=== PATIENT | male | born 1950 | race Caucasian/White ===

== ENCOUNTER 2017-07-20 06:24 | Day surgery (SDC) | payer MEDICARE ==
[~2017-07-20] VITALS: Ht 167.6 cm; Wt 72.3 kg
[~2017-07-20 06:24] MED LIST: ASPI81 PO; FISH1000 PO; LISI10TA PO; LORA-474 PO; LORT5TAB PO; SAWPOW; TAB-TAB PO
[2017-07-20] MEDS ORDERED: IOHEXOL 350 MG/ML 100 ML BTL (for Cath Lab) OTHER ONE (06:25)
[2017-07-20] MEDS ORDERED: SODIUM CHLOR 0.9% 1000 ML INJ 1,000 ML IV SCH ×2 (06:45→10:45)
[2017-07-20] MEDS ORDERED: SODIUM CHLORIDE 0.9% FLUSH 10 ML FLUSH IV FLUSH PRN (06:45)
[2017-07-20 07:11] VITALS: BP 148/79; PULSE 97; RESP 18; TEMP 97.6; O2SAT 95
[2017-07-20] MEDS ORDERED: VITACAP7 PO (07:23)
[2017-07-20] MEDS ORDERED: VITA250C3 CHEW (07:23)
[2017-07-20] MEDS ORDERED: UMEC1AER INH (07:23)
[2017-07-20] MEDS ORDERED: VENTAER INH (07:23)
[2017-07-20] MEDS ORDERED: LORA1TAB12 PO (07:23)
[2017-07-20] MEDS ORDERED: MIRA3350 PO (07:23)
[2017-07-20] MEDS ORDERED: PRAV10TA PO (07:23)
[2017-07-20] MEDS ORDERED: LISI20TA3 PO (07:23)
[2017-07-20] MEDS ORDERED: ASPI81CH7 CHEW (07:23)
[2017-07-20] MEDS ORDERED: BUSP10TA PO (07:23)
[2017-07-20] MEDS ORDERED: HEPARIN-NS/PF FLUSH BAG 1,000 ML IV FLUSH ONE (08:30)
[2017-07-20] MEDS ORDERED: HEPARIN SODIUM - IV 10,000 UNITS/10 ML VIAL ONE (08:33)
[2017-07-20] MEDS ORDERED: NITROGLYCERIN INJ 5 ML ONE (08:33)
[2017-07-20] MEDS ORDERED: MIDAZOLAM HCL 2 MG/2 ML VIAL ONE ×5 (08:33→09:59)
[2017-07-20] MEDS ORDERED: ADENOSINE IV SOLN 3 MG/ML 2 ML VIAL ONE (09:30)
[2017-07-20] MEDS ORDERED: CLOPIDOGREL 300 MG TAB ONE (10:40)
[2017-07-20] MEDS ORDERED: CLOPIDOGREL 300 MG TAB PO ONE (10:45)
[2017-07-20] MEDS ORDERED: LORazepam 2 MG/ML VIAL IV PUSH PRN (10:45)
[2017-07-20] MEDS ORDERED: LIDOCAINE HCL 1% 50 ML VIAL INFIL PRN (10:45)
[2017-07-20] MEDS ORDERED: MISC INFORMATION XX ONE (10:45)
[2017-07-20] MEDS ORDERED: BACITRACIN OINT 0.9 GM PKT TOP ONE (10:45)
--- NOTE | 2017-07-20 10:49 | CATHPROC ---
[facility] HIS Report Study Information Study Number Admission Scheduled Start Study Start [id number] Jul 20 2017 6:24AM 07/20/2017 Jul 20 2017 8:25AM [facility] Service Cardiac Catheterization Admit Source Facility Department Other [facility] Physician and Clinical Staff Initial Patrick Craig Cotton Baler Sandra Barbour,RN Recorder Henrique Mcgrath,RT(R) Scrub Caden Ledezma,RT(R) Procedures Performed Procedure Location (Site) Vessel Name Abdominal Angiogram Abd Aorta (A3) Aorta Angiogram (manual) Fem Art (right) Femoral Art Angiogram (manual) Popliteal R (R10) Popliteal Angiogram (manual) SFA (right) Femoral Art Angiogram (manual) Tib, Ant. (right) Popliteal Angiogram (manual) Tib, Post (right) Popliteal COMPUTER SUPPORT SPECIALIST INSTRUCTOR Fem Art (right) Femoral Art COMPUTER SUPPORT SPECIALIST INSTRUCTOR Tib, Ant. (right) Popliteal Wire insertion Fem Art (left) Femoral Art Wire insertion Fem Art (right) Femoral Art Equipment Time Fan Installer Description Size Mfg Part Number Used/Scraped DBP- CARDIOVASCULAR CATHETER, STEALTH SOLID 09:31 [id number] Used SYSTEMS INC. 1.5MM 30 GRIT *[id number] CARDIOVASCULAR LUBRICANT, VIPERSLIDE [id number] 09:31 Used SYSTEMS INC. ATHERCTOMY *[id number] CARDIOVASCULAR [id number] 09:18 WIRE, FIRM (VIPER) 335 Used SYSTEMS INC. *[id number] WIRE, GUIDE APPROACH HYDRO [id number] 09:12 COOK/KIM 300CM Used ST *[id number] 532-523 08:33 CORDIS/ KIM RIM SUPER TORQUE CATHETER FR 5 Used *[id number] WIRE, STORQ STANDARD MOD J [id number] 10:21 CORDIS/ KIM 300CM Used 300CM *[id number] *[id number] ENDOVASCULAR BALLOON, NANOCROSS 3.0 X 09:37 3 X 210 [id number] Used COMPANY 100MM 150CM ENDOVASCULAR CATHETER, FR4 TRAILBLAZER [id number]-[id number] 09:23 150CM Used COMPANY .014 *[id number] BALLOON, ADMIRAL IN.PACT 4 X [id number] 10:18 [employer] 130CM Used 150 130CM *[id number] BALLOON, ADMIRAL IN.PACT 7 X 10:28 [employer] 130CM [id number] Used 60 130CM BALLOON, PACIFIC PLUS 6 X 80 [id number] 10:09 [employer] 130CM Used 130CM *[id number] CATHETER, FR5 TRAILBLAZER SC-035-135 09:05 [employer] 135CM Used .035 *[id number] 08:33 MALLINCKRODT SYRINGE, ANGIOMAT 150ML 150ML [id number] Used [id number] 08:33 MEDLINE INDUSTRIES PACK, CCL CUSTOM * Used *[id number] [id number] 08:33 MEDLINE PACER PEN, SKIN DUAL W/ RULER * Used *6823379 [id number] 10:32 [employer] MEDICAL SHEATH, FR6.5 PRELUDE 11CM FR 6.5 038ACT Used *[id number] 08:33 [employer] MEDICAL WIRE, EXCHANGE 260CM 3MMJ 260CM Used *[id number] 08:33 NAMIC MANIFOLD, 4 PORT * Used *2122783 [id number] 08:33 NAMIC TUBING, HIGH PRESSURE 48" 48" Used *0676561 08:33 NYCOMED OMNIPAQUE, 300 MG, 150ML 150ML [id number] Used 10:38 NYCOMED OMNIPAQUE, 300 MG, 150ML 150ML [id number] Used [id number] 08:33 [employer]H MEDICAL BLANKET,WARM AIR CCL * Used *5405045 CVH260 08:33 TERUMO MEDICAL SHEATH, FR5 TERUMO (10CM) FR 5 Used *7372267 SHEATH, FR6 PINNACLE [id number] 09:02 TERUMO MEDICAL/KIM FR 6 Used DESTINATION 45CM *[id number] WIRE, ANGLE GLIDE STIFF .035 [id number] 08:33 TERUMO MEDICAL/KIM 260CM Used 260CM *[id number] Equipment Model, Serial, Lot Number and Expiration Data Description Model Number Serial Number Lot Number Expiration Date BALLOON, ADMIRAL IN.PACT 4 X [id number] 12-10-2019 150 130CM BALLOON, ADMIRAL IN.PACT 7 X [id number] 12-31-2019 60 130CM CATHETER, STEALTH SOLID 1.5MM [id number] 11-13-2018 30 GRIT WIRE, FIRM (VIPER) 335 [id number] 05-14-2019 WIRE, GUIDE APPROACH HYDRO [id number] 11-11-2019 ST History: Current Medications Medication Dosage/Unit Route Frequency Last Date/Time Taken Statins (any) Albuterol ASA LISINOPRIL History: Allergies Allergy Reaction hydrocodone RASH oxycodone acetaminophen escitalopram umeclidinium History: Risk Factors Family History of Hypertension Dyslipidemia Previous [place] Previous Heart Failure Premature CAD Yes Yes Yes No No Prior Valve Prior PCI Prior CABG Surgery No No No Cerebrovascular Peripheral Artery Chronic Lung On Dialysis Diabetes Disease Disease Disease No No Yes Yes No History: Stress Tests Stress or Imaging Studies Performed No History: Other Disease Selection Items COPD HTN History: Other Current Smoker Method Quit Packs a Day Years Used Pack Years No Cigarettes 15 Years Ago 2 30 60 Labs Hgb (g/dl) Hct (%) RBC (MIL/MM3) WBC (l/cumm) Platelets (thousands) 11.60-17.00 35.00-51.00 4.00-5.90 4.00-11.00 150.00-450.00 13.1 39.1 4.3 9.1 309 Glucose (mg/dl) BUN (mg/dl) Creatinine (mg/dl) BUN:Creatinine (1:x) 74.00-106.00 7.00-18.00 0.50-1.30 10.00-20.00 99 13 0.9 14.4 Na (meq/l) K (meq/l) Cl (meq/l) CO2 (mmol/L) Ca (mg/dl) 136.00-145.00 3.50-5.10 98.00-107.00 21.00-32.00 8.50-10.10 134 4.1 93 27 9.6 PT (sec) INR (PTT:PT) 9.80-11.60 0.90-1.10 9.8 0.9 CPK-MB (ng/ML) 0.50-3.60 Not Drawn Medication Medication Total Dose (Bolus/Oral) Medication Total Dosage/Unit 1% XYLOCAINE 20 mL ADENOSINE 1260 mcg FENTANYL 300 mcg HEPARIN 6000 units NTG (IC) 1000 mcg PLAVIX 600 mg VERSED 10 mg Medications (Bolus/Oral) Medication Time Given Dosage/Unit Administered By Reason VERSED 07/20/2017 8:52:40 AM 2 mg Sandra Barbour 2 mg VERSED given in lab by Sandra Barbour RN in Left Antecubital via Peripheral IV. Ordered by Patrick Guan. FENTANYL 07/20/2017 8:53:49 AM 50 mcg Adamy, Sandra 50 mcg FENTANYL given in lab by Sandra Barbour RN in Left Antecubital via Peripheral IV. Ordered by Patrick Monet. 1% XYLOCAINE 07/20/2017 8:55:23 AM 20 mL Patrick Monet 20 mL 1% XYLOCAINE given in lab by Patrick Monet in Left Groin via Subcutaneous. Ordered by Zechariah Monet. VERSED 07/20/2017 9:00:47 AM 1 mg Adamy, Sandra 1 mg VERSED given in lab by Sandra Barbour RN in Left Antecubital via Peripheral IV. Ordered by Patrick Guan. FENTANYL 07/20/2017 9:00:52 AM 25 mcg Adamy, Sandra 25 mcg FENTANYL given in lab by Sandra Barbour RN in Left Antecubital via Peripheral IV. Ordered by Patrick Monet. VERSED 07/20/2017 9:11:00 AM 1 mg Adamy, Sandra 1 mg VERSED given in lab by Sandra Barbour RN in Left Antecubital via Peripheral IV. Ordered by Patrick Guan. FENTANYL 07/20/2017 9:12:00 AM 25 mcg Adamy, Sandra 25 mcg FENTANYL given in lab by Sanrda Barbour RN in Left Antecubital via Peripheral IV. Ordered by Patrick Monet. HEPARIN 07/20/2017 9:13:24 AM 5000 units Km Sandra 5000 units HEPARIN given in lab by Sandra Barbour RN in Left Antecubital via Peripheral IV. Ordered by Patrick Monet. VERSED 07/20/2017 9:29:00 AM 1 mg Adamy, Sandra 1 mg VERSED given in lab by Sandra Barbour RN in Left Antecubital via Peripheral IV. Ordered by Patrick Guan. FENTANYL 07/20/2017 9:30:00 AM 25 mcg Adamy, Sandra 25 mcg FENTANYL given in lab by Sandra Barbour RN in Left Antecubital via Peripheral IV. Ordered by Patrick Monet. VERSED 07/20/2017 9:40:00 AM 1 mg Adamy, Sandra 1 mg VERSED given in lab by Sandra Barbour RN in Left Antecubital via Peripheral IV. Ordered by Patrick Guan. NTG (IC) 07/20/2017 9:41:29 AM 200 mcg Caden Ledezma 200 mcg NTG (IC) given in lab by Caden Ledezma RT(R) via Intra-arterial. Ordered by Patrick Monet . FENTANYL 07/20/2017 9:41:45 AM 25 mcg Sandra Barbour 25 mcg FENTANYL given in lab by Sandra Barbour RN in Left Antecubital via Peripheral IV. Ordered by Patrick Monet. ADENOSINE 07/20/2017 9:41:50 AM 180 mcg Caden Ledezma 180 mcg ADENOSINE given in lab by Caden Ledezma RT(R) via Intra-coronary. Ordered by Roderick Monet. NTG (IC) 07/20/2017 9:47:25 AM 200 mcg Caden Ledezma 200 mcg NTG (IC) given in lab by Caden Ledezma RT(R) via Intra-arterial. Ordered by Patrick Monet . ADENOSINE 07/20/2017 9:47:29 AM 180 mcg Caden Ledezma 180 mcg ADENOSINE given in lab by Caden Ledezma RT(R) via Intra-coronary. Ordered by Roderick Monet VERSED 07/20/2017 9:50:58 AM 1 mg Sandra Barbour 1 mg VERSED given in lab by Sandra Barbour RN in Left Antecubital via Peripheral IV. Ordered by Patrick Guan. FENTANYL 07/20/2017 9:51:03 AM 50 mcg Sandra Barbour 50 mcg FENTANYL given in lab by Sandra Barbour RN in Left Antecubital via Peripheral IV. Ordered by Patrick Monet. ADENOSINE 07/20/2017 9:54:39 AM 180 mcg Caden Ledezma 180 mcg ADENOSINE given in lab by Caden Ledezma RT(R) via Intra-coronary. Ordered by Roderick Monet. NTG (IC) 07/20/2017 9:54:51 AM 200 mcg Caden Ledezma 200 mcg NTG (IC) given in lab by Caden Ledezma RT(R) via Intra-arterial. Ordered by Patrick Monet . NTG (IC) 07/20/2017 10:01:43 AM 200 mcg Caden Ledezma 200 mcg NTG (IC) given in lab by Caden Ledezma RT(R) via Intra-arterial. Ordered by Patrick Monet . ADENOSINE 07/20/2017 10:01:54 AM 180 mcg Caden Ledezma 180 mcg ADENOSINE given in lab by Caden Ledezma RT(R) via Intra-coronary. Ordered by Roderick Monet ADENOSINE 07/20/2017 10:05:29 AM 180 mcg Caden Ledezma 180 mcg ADENOSINE given in lab by Caden Ledezma RT(R) via Intra-coronary. Ordered by Roderick Monet VERSED 07/20/2017 10:08:01 AM 2 mg Clarisa Barbournifer 2 mg VERSED given in lab by Sandra Barbour RN in Left Antecubital via Peripheral IV. Ordered by Patrick Guan. FENTANYL 07/20/2017 10:08:05 AM 50 mcg Sandra Barbour 50 mcg FENTANYL given in lab by Sandra Barbour RN in Left Antecubital via Peripheral IV. Ordered by Patrick Monet. ADENOSINE 07/20/2017 10:19:07 AM 180 mcg Caden Ledezma 180 mcg ADENOSINE given in lab by Caden Ledezma RT(R) via Intra-coronary. Ordered by Roderick Monet VERSED 07/20/2017 10:25:27 AM 1 mg Clarisa Barbournifer 1 mg VERSED given in lab by Sandra Barbour RN in Left Antecubital via Peripheral IV. Ordered by Patrick Guan. FENTANYL 07/20/2017 10:25:31 AM 50 mcg Sandra Barbour 50 mcg FENTANYL given in lab by Sandra Barbour RN in Left Antecubital via Peripheral IV. Ordered by Patrick Monet. HEPARIN 07/20/2017 10:28:37 AM 1000 units Sandra Barbour 1000 units HEPARIN given in lab by Sandra Barbour RN in Left Antecubital via Peripheral IV. Ordered by Patrick Monet. NTG (IC) 07/20/2017 10:34:54 AM 200 mcg Caden Ledezma 200 mcg NTG (IC) given in lab by Caden Ledezma RT(R) via Intra-arterial. Ordered by Patrick Monet . ADENOSINE 07/20/2017 10:34:58 AM 180 mcg Caden Ledezma 180 mcg ADENOSINE given in lab by Caden Ledezma RT(R) via Intra-coronary. Ordered by Roderick Monet PLAVIX 07/20/2017 10:50:00 AM 600 mg Sandra Barbour 600 mg PLAVIX given in lab by Sandra Barbour, RN via Oral. Ordered by Patrick Monet. Medication (Drip) Medication Time Given Dosage/Unit Concentration/Unit Diluent (ml) Solution IV Solutions 07/20/2017 8:25:38 AM 0 mL (IV) 500 NaCl .9 IV Solutions given in lab by Sandra Barbour, RN in Left Antecubital via Peripheral IV. Pump/Drip Armani w = 20 ml/hr using NaCl .9. Ordered by Patrick Monet. Initial Case Assessment Cardiovascular HR Rhythm NIBP Chest Pain 92 Sinus 145/80 0 Edema Present Skin color Skin None Normal Warm Dry Circulatory - Right Pulses Dorsalis Pedis Femoral 1 2 Scale (0,1,2,3,4,d) Circulatory - Left Pulses Dorsalis Pedis Femoral 2 2 Scale (0,1,2,3,4,d) Neurological State Oriented to time-place- Alert Moves all extremities person Respiration - General Respiration Rate SpO2 (%) O2 (lpm) (B/min) 17 99 0 Final Case Assessment Cardiovascular HR Rhythm NIBP Chest Pain 68 Sinus 113/61 0 Edema Present Skin color Skin None Normal Warm Dry Circulatory - Right Pulses Dorsalis Pedis Femoral 1 2 Scale (0,1,2,3,4,d) Circulatory - Left Pulses Dorsalis Pedis Femoral 2 2 Scale (0,1,2,3,4,d) Neurological State Oriented to time-place- Alert Moves all extremities person Respiration - General Respiration Rate SpO2 (%) O2 (lpm) (B/min) 20 97 2 Chronological Log Time Study Chronological Log 8:25:19 Patient arrived via Bed. 8:25:20 Patient Name, D.O.B, / Armband Verified By R.N. 8:25:21 Consent signed by the physician and the patient and verified by the [facility] staff. 8:25:22 Pre-op and post- op instructions given; patient acknowledges understanding of instructions. 8:25:23 Verbal Stimulation=2 Physical Stimulation=2 Airway=2 Respiration=2 TOTAL=8. (0=absent, 1=li mited, 2=present) 8:25:24 Presedation assessment performed by [facility] RN. 8:25:28 Patient has been NPO for More than 6Hrs. 8:25:29 Skin Breakdown-none per patient 8:25:32 Patient Warmer Placed on the Table. 8:25:33 Romel Prominences Protected 8:25:35 A # 20 IV was noted in the Antecubital (left). Grade = 0 IV Solutions given in lab by Sandra Barbour, RN in Left Antecubital via Peripheral IV. Pump/Dr ip Flow = 20 ml/hr using 8:25:38 NaCl .9. Ordered by Patrick Monet. 8:25:39 History and physical on the chart or being dictated. Vitals capture started with the following parameters, Patient=Adult, Interval=5 min, Initial Pr vsnxks=309 mmHg, 8:29:43 Deflation Rate=5 mmHg, Cuff placed on Right Ankle Assessment: Initial Case, HR=92 BPM, Rhythm=Sinus, FAZY=741/80 mmhg, Chest Pain=0, Edema=None, Color=Normal, Skin = Warm, Dry Right Pulses: Remigio Ped=1, Femoral=2 8:30:05 Left Pulses: Remigio Ped=2, Femoral=2 Neurological: State=Alert, Ox3, MUNOZ Respiration: Resp=17 B/min, SpO2=99 %, O2=0 lpm 8:30:21 HR=93 bpm, ZNVN=871/80 mmhg, WdP8=293.0 %, Resp=0 B/min, Pain=0, Merlyn=10, Farfan=2 8:35:00 Reference ECG taken 8:35:22 HR=90 bpm, TTES=566/76 mmhg, SpO2=98.0 %, Resp=15 B/min, Pain=0, Merlyn=10, Farfan=2 8:38:13 Bilateral groins prepped with 2% chlorhexidine, and draped after a 3 minute waiting time. 8:40:21 HR=93 bpm, WEJK=398/78 mmhg, SpO2=99.0 %, Resp=17 B/min, Pain=0, Merlyn=10, Farfan=2 8:43:42 Pressure channel 1 zeroed. 8:45:22 HR=95 bpm, MELE=174/74 mmhg, SpO2=99.0 %, Resp=20 B/min, Pain=0, Merlyn=10, Farfan=2 8:48:51 MD paged 8:50:19 HR=87 bpm, ZKSI=184/77 mmhg, SpO2=96.0 %, Resp=14 B/min, Pain=0, Merlyn=10, Farfan=2 8:51:12 MD arrived. 8:52:40 2 mg VERSED given in lab by Sandra Barbour, KIRBY in Left Antecubital via Peripheral IV. Order ed by Patrick Monet. 8:53:49 50 mcg FENTANYL given in lab by Sandra Barbour, KIRBY in Left Antecubital via Peripheral IV. O rdered by Patrick Monet. Time Out. Correct patient, correct procedure, correct physician, power injector loaded with cont rast with surgical team 8:54:20 present. Time Out Concurred by MD and individual staff in procedure. 8:54:37 Case Start 8:55:20 HR=88 bpm, QPYC=214/65 mmhg, SpO2=92.0 %, Resp=15 B/min, Pain=0, Merlyn=10, Farfan=2 8:55:23 20 mL 1% XYLOCAINE given in lab by Patrick Monet in Left Groin via Subcutaneous. Ordered by Patrick Monet. 8:57:27 Access site was Left Femoral Artery. 8:57:36 A SHEATH, FR5 TERUMO (10CM) FR 5 was advanced into the Fem Art (left) using the Percutaneous technique. A PIGTAIL ANG. INFINITI CATHETER FR 5 was advanced over a wire. OMNIPAQUE, 300 MG, 150ML 150ML w as used 8:58:05 for injections. 8:59:11 Through a PIGTAIL ANG. INFINITI CATHETER FR 5, The Abdominal Aorta was injected with 10 cc's of contrast. After removing the current catheter a RIM SUPER TORQUE CATHETER FR 5 was advanced over a WIRE, E XCHANGE 9:00:04 260CM 3MMJ 260CM. 9:00:19 HR=91 bpm, YVRN=886/73 mmhg, SpO2=99.0 %, Resp=15 B/min, Pain=0, Merlyn=10, Farfan=2 9:00:47 1 mg VERSED given in lab by Sandra BarbourKIRBY in Left Antecubital via Peripheral IV. Order ed by Patrick Monet. 9:00:52 25 mcg FENTANYL given in lab by Sandra Barbour RN in Left Antecubital via Peripheral IV. O rdered by Patrick Monet. 9:01:43 Fem Art (right) angiogram, manually injected. 9:02:06 SFA (right) angiogram, manually injected. 9:02:40 Popliteal R (R10) angiogram, manually injected. 9:02:57 Tib, Ant. (right) angiogram, manually injected. 9:03:34 Tib, Post (right) angiogram, manually injected. 9:05:18 HR=90 bpm, NAZG=247/71 mmhg, OsC1=141.0 %, Resp=14 B/min, Pain=0, Merlyn=10, Farfan=2 9:05:24 A WIRE, GUIDE APPROACH HYDRO ST 300CM was inserted via Fem Art (left). 9:10:17 HR=82 bpm, SRBC=974/67 mmhg, XhT6=025.0 %, Resp=18 B/min, Pain=0, Merlyn=10, Farfan=2 9:11:00 1 mg VERSED given in lab by Sandra Barbour RN in Left Antecubital via Peripheral IV. Order ed by Patrick Monet. 9:12:00 25 mcg FENTANYL given in lab by Sandra Barbour RN in Left Antecubital via Peripheral IV. O rdered by Patrick Monet. A CATHETER, FR5 TRAILBLAZER .035 135CM was advanced over a wire. OMNIPAQUE, 300 MG, 150ML 150ML was 9:12:28 used for injections. 5000 units HEPARIN given in lab by Sandra Barbour RN in Left Antecubital via Peripheral IV. Or dered by Chiki, 9:13:24 Patrick. 9:14:20 The previous wire was exchanged for a WIRE, ANGLE GLIDE STIFF .035 260CM 260CM. 9:14:59 Catheter was removed w/o difficulty 9:15:22 HR=91 bpm, ASOL=246/66 mmhg, VgB8=178.0 %, Resp=25 B/min, Pain=0, Merlyn=10, Farfan=2 A SHEATH, FR6 PINNACLE DESTINATION 45CM FR 6 was exchanged in the Fem Art (left). This was liseth mckeon in order 9:15:46 to accomodate a larger catheter. A CATHETER, FR5 TRAILBLAZER .035 135CM was advanced over a wire. OMNIPAQUE, 300 MG, 150ML 150ML was 9:17:36 used for injections. 9:18:43 Tib, Ant. (right) angiogram, manually injected. 9:19:15 Tib, Post (right) angiogram, manually injected. 9:20:21 HR=91 bpm, TPIQ=977/70 mmhg, SpO2=99.0 %, Resp=42 B/min, Pain=0, Merlyn=10, Farfan=2 9:20:44 Tib, Post (right) angiogram, manually injected. 9:24:07 A WIRE, GUIDE APPROACH HYDRO ST 300CM was inserted via Fem Art (left). 9:25:24 HR=89 bpm, XFGE=009/61 mmhg, JpF6=101.0 %, Resp=15 B/min, Pain=0, Merlyn=10, Farfan=2 9:28:17 Wire removed 9:29:00 1 mg VERSED given in lab by Sandra Barbour RN in Left Antecubital via Peripheral IV. Order ed by Patrick Monet. 9:29:47 Tib, Post (right) angiogram, manually injected. 9:30:00 25 mcg FENTANYL given in lab by Sandra Barbour, KIRBY in Left Antecubital via Peripheral IV. O rdered by Patrick Monet. 9:30:21 HR=90 bpm, PGKB=414/65 mmhg, SpO2=99.0 %, Resp=15 B/min, Pain=0, Merlyn=10, Farfan=2 9:31:28 Catheter was removed 9:34:31 An CATHETER, STEALTH SOLID 1.5MM 30 GRIT catheter was inserted into the Tib, Ant. (right). 9:35:24 HR=94 bpm, WOZR=360/69 mmhg, LaI5=571.0 %, Resp=16 B/min, Pain=0, Merlyn=10, Farfan=2 9:36:56 Athrectomy in progress. 9:40:00 1 mg VERSED given in lab by Sandra Barbour, KIRBY in Left Antecubital via Peripheral IV. Order ed by Patrick Monet. 9:40:23 HR=90 bpm, LJUZ=407/66 mmhg, SpO2=98.0 %, Resp=15 B/min, Pain=0, Merlyn=10, Farfan=2 9:41:10 Athrectomy in progress. 9:41:29 200 mcg NTG (IC) given in lab by Caden Ledezma RT(R) via Intra-arterial. Ordered by Patrick Monet. 9:41:45 25 mcg FENTANYL given in lab by Sandra Barbour, KIRBY in Left Antecubital via Peripheral IV. O rdered by Patrick Monet. 9:41:50 180 mcg ADENOSINE given in lab by Caden Ledezma RT(R) via Intra-coronary. Ordered by Patrick Joyce. 9:45:24 HR=93 bpm, JLTG=560/63 mmhg, SpO2=97.0 %, Resp=22 B/min, Pain=0, Merlyn=10, Farfan=2 9:46:44 Catheter was removed w/o difficulty 9:47:14 Activated Clotting Time Drawn 9:47:25 200 mcg NTG (IC) given in lab by Caden Ledezma RT(R) via Intra-arterial. Ordered by Patrick Monet. 9:47:29 180 mcg ADENOSINE given in lab by Caden Ledezma RT(R) via Intra-coronary. Ordered by Patrick Joyce. A BALLOON, NANOCROSS 3.0 X 100MM 150CM 3 X 210 was inserted over WIRESWETHA (VIPER) 335 via the Tib, Ant. 9:47:50 (right). 9:49:20 In the Tib, Ant. (right) a BALLOON, NANOCROSS 3.0 X 100MM 150CM 3 X 210 was inflated to 8 at ms for 120 seconds. 9:50:21 HR=91 bpm, WONA=979/65 mmhg, SpO2=98.0 %, Resp=16 B/min, Pain=0, Merlyn=10, Farfan=2 9:50:58 1 mg VERSED given in lab by Sandra Barbour, KIRBY in Left Antecubital via Peripheral IV. Order ed by Patrick Monet. 9:51:03 50 mcg FENTANYL given in lab by Adamy, Sandra, RN in Left Antecubital via Peripheral IV. O rdered by Patrick Monet. 9:51:09 In the Tib, Ant. (right) a BALLOON, NANOCROSS 3.0 X 100MM 150CM 3 X 210 was inflated to 8 at ms for 60 seconds. 9:52:08 ACT (Normal Range 90-180) = 252 9:52:25 In the Tib, Ant. (right) a BALLOON, NANOCROSS 3.0 X 100MM 150CM 3 X 210 was inflated to 8 at ms for 60 seconds. 9:54:32 Balloon Removed. 9:54:39 180 mcg ADENOSINE given in lab by Caden Ledezma RT(R) via Intra-coronary. Ordered by Patrick Joyce. 9:54:51 200 mcg NTG (IC) given in lab by Caden Ledezma RT(R) via Intra-arterial. Ordered by Patrick Monet. 9:55:25 Tib, Ant. (right) angiogram, manually injected. 9:55:27 HR=83 bpm, LAIG=283/51 mmhg, SpO2=97.0 %, Resp=11 B/min, Pain=0, Merlyn=10, Farfan=2 9:58:37 An CATHETER, The ButlerALTH SOLID 1.5MM 30 GRIT catheter was inserted into the Fem Art (right). 10:00:22 HR=87 bpm, POLR=747/65 mmhg, SpO2=97.0 %, Resp=15 B/min, Pain=0, Merlyn=10, Farfan=2 10:00:43 Athrectomy in progress. 10:01:43 200 mcg NTG (IC) given in lab by Caden Ledezma RT(R) via Intra-arterial. Ordered by Patrick Joyce. 10:01:54 180 mcg ADENOSINE given in lab by Caden Ledezma RT(R) via Intra-coronary. Ordered by Patrick Guan. 10:02:57 Athrectomy in progress. 10:05:23 HR=69 bpm, NBVH=603/59 mmhg, SpO2=97.0 %, Resp=16 B/min, Pain=0, Merlyn=10, Farfan=2 10:05:29 180 mcg ADENOSINE given in lab by Caden Ledezma RT(R) via Intra-coronary. Ordered by Patrick Guan. 10:07:49 Catheter was removed w/o difficulty 10:08:01 2 mg VERSED given in lab by Sandra Barbour, RN in Left Antecubital via Peripheral IV. Orde red by Patrick Monet. 10:08:05 50 mcg FENTANYL given in lab by Sandra Barbour, KIRBY in Left Antecubital via Peripheral IV. Ordered by Patrick Monet. 10:08:24 A BALLOON, PACIFIC PLUS 6 X 80 130CM 130CM was inserted over WIRE, FIRM (VIPER) 335 via the Fem Art (right). 10:09:16 In the Fem Art (right) a BALLOON, PACIFIC PLUS 6 X 80 130CM 130CM was inflated to 8 atms fo r 20 seconds. 10:09:35 In the Fem Art (right) a BALLOON, PACIFIC PLUS 6 X 80 130CM 130CM was inflated to 8 atms fo r 20 seconds. 10:10:24 HR=76 bpm, NIBP=96/56 mmhg, SpO2=93.0 %, Resp=20 B/min, Pain=0, Merlyn=10, Farfan=2 10:11:40 Balloon Removed. A BALLOON, NANOCROSS 3.0 X 100MM 150CM 3 X 210 was inserted over WIRE, FIRM (VIPER) 335 via the Tib, Ant. 10:12:20 (right). 10:13:47 In the Tib, Ant. (right) a BALLOON, NANOCROSS 3.0 X 100MM 150CM 3 X 210 was inflated to 6 a tms for 60 seconds. 10:15:16 Wire removed 10:15:21 HR=77 bpm, NIBP=94/62 mmhg, SpO2=98.0 %, Resp=13 B/min, Pain=0, Merlyn=10, Farfan=2 10:17:11 Tib, Ant. (right) angiogram, manually injected. 10:19:07 180 mcg ADENOSINE given in lab by Caden Ledezma, RT(R) via Intra-coronary. Ordered by Patrick Guan. 10:19:16 A WIRE, FIRM (VIPER) 335 was inserted via Fem Art (left). 10:20:22 HR=65 bpm, GITW=851/58 mmhg, SpO2=98.0 %, Resp=22 B/min, Pain=0, Merlyn=10, Farfan=2 A CATHETER, FR5 TRAILBLAZER .035 135CM was advanced over a wire. OMNIPAQUE, 300 MG, 150ML 150ML was 10:21:05 used for injections. 10:22:00 Tib, Ant. (right) angiogram, manually injected. 10:22:15 A WIRE, STORQ STANDARD MOD J 300CM 300CM was inserted via Fem Art (right). 10:22:42 Catheter was removed 10:23:12 Activated Clotting Time Drawn A BALLOON, ADMIRAL IN.PACT 4 X 150 130CM 130CM was inserted over WIRE, STORQ STANDARD MOD J 300 CM 10:24:34 300CM via the Tib, Ant. (right). 10:24:46 In the Tib, Ant. (right) a BALLOON, ADMIRAL IN.PACT 4 X 150 130CM 130CM was inflated to 8 a tms for 180 seconds. 10:25:23 HR=73 bpm, GZAB=511/60 mmhg, SpO2=99.0 %, Resp=10 B/min, Pain=0, Merlyn=10, Farfan=2 10:25:27 1 mg VERSED given in lab by Sandra Barbour, KIRBY in Left Antecubital via Peripheral IV. Orde red by Patrick Monet. 10:25:31 50 mcg FENTANYL given in lab by Sandra Barbour RN in Left Antecubital via Peripheral IV. Ordered by Patrick Monet. 10:28:00 ACT (Normal Range 90-180) = 222 10:28:15 Balloon Removed. 1000 units HEPARIN given in lab by Sandra Barbour, KIRBY in Left Antecubital via Peripheral IV. O rdered by Chiki 10:28:37 Patrick. A BALLOON, ADMIRAL IN.PACT 7 X 60 130CM 130CM was inserted over WIRE, STORQ STANDARD MOD J 300C M 10:30:02 300CM via the Fem Art (right). 10:30:22 In the Fem Art (right) a BALLOON, ADMIRAL IN.PACT 7 X 60 130CM 130CM was inflated to 8 atms for 180 seconds. 10:30:26 HR=70 bpm, WFTC=259/61 mmhg, SpO2=98.0 %, Resp=15 B/min, Pain=0, Merlyn=10, Farfan=2 10:33:44 In the Fem Art (right) a BALLOON, ADMIRAL IN.PACT 7 X 60 130CM 130CM was inflated to 8 atms for 10 seconds. 10:34:10 Balloon Removed. 10:34:54 200 mcg NTG (IC) given in lab by Caden Ledezma RT(R) via Intra-arterial. Ordered by Patrick Joyce. 10:34:58 180 mcg ADENOSINE given in lab by Caden Ledezma RT(R) via Intra-coronary. Ordered by Patrick Guan. 10:35:25 HR=73 bpm, BISZ=435/60 mmhg, SpO2=98.0 %, Resp=15 B/min, Pain=0, Merlyn=10, Farfan=2 10:35:45 Balloon Removed. 10:35:47 Fem Art (right) angiogram, manually injected. 10:36:49 Tib, Ant. (right) angiogram, manually injected. 10:36:54 Tib, Post (right) angiogram, manually injected. A CATHETER, FR5 TRAILBLAZER .035 135CM was advanced over a wire. OMNIPAQUE, 300 MG, 150ML 150ML was 10:37:37 used for injections. 10:38:51 Tib, Ant. (right) angiogram, manually injected. 10:39:17 Tib, Ant. (right) angiogram, manually injected. 10:40:24 HR=73 bpm, KVUL=859/62 mmhg, SpO2=99.0 %, Resp=15 B/min, Pain=0, Merlyn=10, Farfan=2 10:40:34 Catheter was removed w/o difficulty A SHEATH, FR6.5 PRELUDE 11CM FR 6.5 was exchanged in the Fem Art (left). This was necessary in order to minimize 10:41:03 site leakage. 10:41:18 Case End 10:42:36 In the Fem Art (right) the SHEATH, FR6.5 PRELUDE 11CM FR 6.[address] by Caden Matamoros RT(R). 10:44:35 No case complications noted. 10:44:38 Sterile dressing applied to site 10:44:40 Cine recording checked. 10:45:25 HR=68 bpm, NIZD=514/61 mmhg, SpO2=98.0 %, Resp=19 B/min, Pain=0, Merlyn=10, Farfan=2 10:46:00 Bedside Report will be given. Assessment: Final Case, HR=68 BPM, Rhythm=Sinus, YCBK=489/61 mmhg, Chest Pain=0, Edema=None, Color=Normal, Skin = Warm, Dry Right Pulses: Remigio Ped=1, Femoral=2 10:46:36 Left Pulses: Remigio Ped=2, Femoral=2 Neurological: State=Alert, Ox3, MUNOZ Respiration: Resp=20 B/min, SpO2=97 %, O2=2 lpm 10:49:07 Vitals capture stopped. 10:50:00 600 mg PLAVIX given in lab by Sandra Barbour, KIRBY via Oral. Ordered by Patrick Monet. 10:53:10 [facility] End Study - Contrast Media Used In Study Contrast Total Opened (mL) Total Used (mL) Total Wasted (mL) Omnipaque 350 160 190 End Study - Maximum Contrast Load Max Contrast Load (mL) 401.8 End Study - Radiation Exposure Fluoro Time (minutes) 28.2 End Study - Patient Disposition Complications Transferred To Interventional Outcome No Outpatient Bed successful
[2017-07-20] MEDS ORDERED: PLAV75TA29 PO (10:53)
--- NOTE | 2017-07-20 12:04 | MA ---
cc: Patrick Monet MD DATE: 07/20/2017 This is a peripheral angiography and intervention. PROCEDURES PERFORMED: 1. Fluoroscopy with interpretation. 2. Descending aortography. 3. Right lower extremity peripheral angiography with first, second, third order visualization interpretation. 4. Orbital rotational atherectomy and balloon angioplasty with drug-coated balloon of the right chronically occluded anterior tibial artery. 5. Orbital rotational atherectomy and balloon angioplasty with drug-coated balloon of the heavily calcified right common femoral artery. METHOD: The risks, benefits and alternatives discussed with the patient. The patient understood and consented to the procedure. The patient brought into the catheterization lab and placed on the catheterization table. The left groin was prepped and draped in the usual sterile fashion. The left groin was anesthetized with 2% lidocaine. The left common femoral artery was cannulated and a 5-[place] 11 cm sheath was placed without difficulty. DESCENDING AORTOGRAPHY: Descending aortography was performed in anterior/posterior views using a 24 mL contrast injection with good opacification. Descending aortography revealed mild infrarenal descending aortic atherosclerosis and bilateral renal arteries are widely patent. PERIPHERAL ANGIOGRAPHY: 1. Right common internal and external iliac arteries have minor luminal irregularities. 2. Right common femoral artery is heavily calcified with a 75/80 percent eccentric stenosis. There is a 40 mmHg translesional gradient. Right superficial femoral artery, profunda, popliteal artery have mild luminal irregularities. The right peroneal artery is patent. 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 PERIPHERAL ANGIOGRAPHY: Heparin was administered throughout the entire procedure. A 6-[place] 45 cm LMN-1umFavoe Grasston sheath was advanced up and over the arch into the right external iliac artery. Glidewire was navigated down over a 0.035 inch TrailBlazer catheter to the distal popliteal. A 0.014 inch, [address] wire was navigated down the anterior tibial vessel. A 0.014 inch, 150 cm TrailBlazer catheter was advanced behind it. We were finally able to cross through the chronic occlusion into the distal vessel. Selective digital subtraction angiography did confirm intraluminal placement. The wire was removed. A 0.014 inch, 335 cm ViperWire was navigated down to the distal foot and the TrailBlazer catheter removed. A 1.5 mm classic CSI atherectomy catheter was then prepped. Orbital rotational atherectomy was performed on 4 sequential passes through the entire level of the anterior tibial artery and across the ankle also followed by a 2.5 tapered to 3.5, 200 mm Medtronic balloon on two sequential inflations. Repeat angiography showed SCOTT 1 flow. There likely is no reflow given the heavy calcium present. Adenosine and nitroglycerin were given several times. Attention was then directed towards the right common femoral artery. Orbital rotational atherectomy was performed at 90,000 revolutions per minute on 3 sequential passes in the right common femoral artery followed by balloon angioplasty with a 6.0 x 80 mm Medtronic balloon, followed by a 7.0 x 60 mm Medtronic drug-coated balloon. Repeat angiography showed no residual stenosis, SCOTT 3 flow. Attention was then directed towards the right anterior tibial artery and a 4.0 x 150 mm drug-coated balloon was then deployed in the mid segment and a 2.5 tapered to 3.5 balloon was advanced just across the ankle to the top of the foot and deployed. Adenosine and nitroglycerin were given again. Repeat angiography still showed SCOTT 1 flow likely due to no reflow and distal runoff, but the remainder of the anterior tibial is now widely patent. CONCLUSIONS: 1. Successful orbital rotational atherectomy and balloon angioplasty with drug-coated balloon of the right common femoral and anterior tibial arteries. 2. Mild infrarenal descending aortic atherosclerosis. PLAN: Hopefully this will translate well with symptomatic improvement. The right common femoral result is excellent. I do expect the anterior tibial artery to improve with distal runoff and hopefully maintain good patency to the anterior tibial itself. We will give aspirin and Plavix. Patrick Monet MD LEV/DL , 10:51 AM , 12:03 PM
[2017-07-20] MEDS ORDERED: ACETAMINOPHEN 325 MG TAB PO ONE (18:30)
[2017-07-21] MEDS ORDERED: ASPIRIN 81 MG CHEW TAB PO SCH (09:00)
[2017-07-21] MEDS ORDERED: CLOPIDOGREL 75 MG TAB PO SCH (09:00)
--- NOTE | 2017-07-22 11:57 | EKG ---
Date Performed: 07/20/2017 Time Performed: 07:36:16 PTAGE: 67 years EKG: Sinus rhythm with PVC(s). ST junctional depression is nonspecific Borderline ECG PREVIOUS TRACING : 02/22/2010 08.52 DOCTOR: Patrick Monet Interpretating Date/Time 07/22/2017 11:55:46
== END 2017-07-20 19:45 | disposition home or self-care (01) ==
LOC: HDOC 06:24 → HDIC 06:24 → HDOC 19:45
PROVIDERS: ATTEND Internal Medicine
DX: I70.211 Atherosclerosis of native arteries of extremities with intermittent claudication, right leg (principal); I70.0 Atherosclerosis of aorta; R94.31 Abnormal electrocardiogram [ECG] [EKG]; I10 Essential (primary) hypertension; J44.9 Chronic obstructive pulmonary disease, unspecified
CPT/HCPCS: 37225; 37229; 75625; 75710; 85002; 86850; 86900; 86901; 93005; 99152; 99153; C1714; C1725; C1751; C1769; C1893; C2623; J0153; J1644; J2250; J3010; Q9967